=== PATIENT | male | born 1950 | race Caucasian/White ===

== ENCOUNTER 2020-03-04 06:30 | Day surgery (SDC) | payer OTHER ==
[2020-03-01 14:45] LABS: BASOPHILS % (AUTO) 0.6 % (0.0-5.0); EOSINOPHILS % (AUTO) 2.4 % (0.0-8.0); HEMATOCRIT 42.3 % (42-54); LYMPHOCYTES % (AUTO) 42.2 % (21.0-51.0); MEAN CORPUSCULAR HEMOGLOBIN 29.4 pg (27.0-33.0); MEAN CORPUSCULAR HGB CONC 32.9 g/dL (32.0-36.0); MEAN CORPUSCULAR VOLUME 89.4 fL (79-99); MONOCYTES % (AUTO) 6.8 % (3.0-13.0); NEUTROPHILS % (AUTO) 47.6 % (40.0-77.0); PLATELET COUNT (AUTO) 150 K/uL (130-400); RED BLOOD CELL COUNT(AUTO) 4.73 MIL/uL (4.50-6.20); RED CELL DISTRIBUTION WIDTH 13.4 % (11.0-15.5); WHITE BLOOD COUNT (AUTO) 5.5 K/uL (4.8-10.8)
[2020-03-01 15:05] LABS: CREATININE 0.9 mg/dL (0.5-1.5)
[2020-03-03 11:15] VITALS: BP 105/75
--- NOTE | 2020-03-03 14:29 | NUR ---
ABNORMAL EKG NOTIFIED OF ABNORMAL EKG. OK TO PROCEED WITH SURGERY. TELEPHONE ORDERS RECEIVED TO NOTIFY PCP OF ABNORMAL EKG. CALLED OFFICE OF DR. ROBERT PAREDES AND SPOKE WITH POOL. EKG FAXED TO OFFICE OF DR. PAREDES AT . DR. NARAYANAN NOTIFIED THAT PCP HAS BEEN NOTIFIED OF EKG.
[~2020-03-04] VITALS: Ht 190.5 cm; Wt 89.3 kg
[2020-03-04] VITALS (17 sets, daily range): BP systolic 106–126; BP diastolic 60–78
[~2020-03-04 06:30] MED LIST: AEC81 PO; CEFTRIAXONE SODIUM 1 GM IVP SCH; TAMS-1 PO
[2020-03-04] MEDS ORDERED: SODIUM CHLORIDE 0.9% 1000ML 0 ML IV ONE (06:35)
--- NOTE | 2020-03-04 06:40 | NUR ---
preop pt arrived via w/c in no distress. pt oriented to room and call light. will continue to monitor pt
[2020-03-04] MEDS ORDERED: LACTATED RINGERS 1000ML 1,000 ML IV ONE (07:06)
[2020-03-04] MEDS ORDERED: LIDOCAINE PF 2% 5ML ABBOJECT ONE ×2 (08:20→08:21)
[2020-03-04] MEDS ORDERED: SUCCINYLCHOLINE 200MG/10ML SYR ONE ×2 (08:20→08:23)
[2020-03-04] MEDS ORDERED: DEXAMETHASONE SOD PHOSPHATE 10MG/ML 1ML VIAL ONE (08:20)
[2020-03-04] MEDS ORDERED: GLYCOPYRROLATE 1 MG/5 ML SYRINGE ONE (08:21)
[2020-03-04] MEDS ORDERED: FENTANYL CITRATE PF 50 MCG/1 ML 2ML VIAL ONE (08:21)
[2020-03-04] MEDS ORDERED: NEOSTIGMINE 5MG/5ML SYR IV ONE (08:21)
[2020-03-04] MEDS ORDERED: ONDANSETRON HCL 4 MG/2 ML VIAL ONE (08:21)
[2020-03-04] MEDS ORDERED: PROPOFOL 10 MG/ML 20ML VIAL IV ONE (08:21)
[2020-03-04] MEDS ORDERED: MIDAZOLAM HCL 1 MG/ML 2ML VIAL ONE (08:21)
[2020-03-04] MEDS ORDERED: ROCURONIUM 10MG/1ML SYR 10 MG/ML ML ONE ×2 (08:21→09:19)
[2020-03-04] MEDS ORDERED: ATROPINE SULFATE 0.1 MG/ML 10 ML SYG IVP ONE (08:55)
[2020-03-04] MEDS ORDERED: OPIUM/BELLADONNA ALKALOIDS 1 EACH SUPP.RECT RC ONE (09:36)
[2020-03-04] MEDS ORDERED: MEPERIDINE-PF 25 MG/ML SYG ONE (09:38)
--- NOTE | 2020-03-04 10:50 | NUR ---
PATIENT BROUGHT TO DAY PATIENT VIA STRETCHER BY BAR GRULLON. PATIENT AAOX3, VITAL SIGNS STABLE. DENIES ANY PAIN AT THIS TIME. SERRANO CATHETER IN PLACE DRAINING LIGHT PINK TINGED URINE. SERRANO BAG CHANGED/SWITCHED OUT TO A LEG BAG. PATIENT TOLERATED WELL. PATIENT PROVIDED WITH EXTRA SERRANO BAG TO TAKE HOME. SERRANO CARE INSTRUCTIONS PROVIDED TO PATIENT AND CAREGIVER.
[2020-03-04] MEDS ORDERED: PHENAZOPYRIDINE HCL 200 MG TABLET ONE (11:11)
--- NOTE | 2020-03-04 11:35 | NUR ---
PATIENT DISCHARGED FROM FACILITY VIA WHEELCHAIR BY NURSE. PATIENT ASSISTED INTO PRIVATE VEHICLE DRIVEN BY FAMILY.
== END 2020-03-04 11:35 | disposition home or self-care (01) ==
LOC: DAH 06:30
PROVIDERS: ATTEND Urology
DX: N40.1 Benign prostatic hyperplasia with lower urinary tract symptoms (principal); Z20.828 Contact with and (suspected) exposure to other viral communicable diseases; R35.1 Nocturia; R39.14 Feeling of incomplete bladder emptying; R33.8 Other retention of urine; R39.12 Poor urinary stream; Z98.890 Other specified postprocedural states; Z79.899 Other long term (current) drug therapy
CPT/HCPCS: 36415; 52648; 80048; 85025; 93005; A4215; A4216; A4221; A4222; A4223 ×3; A4354; A4358 ×2; A4510; A4600; A4606; A4663; A5113; A6260; C9803; J0330 ×2; J0461; J0696; J1100; J2001 ×2; J2175; J2250; J2405; J2704; J2710; J3010; J3490; J7120 ×2; U0003; J7030

== ENCOUNTER → 2020-12-25 | Outpatient (CLI) | payer OTHER ==
[~2020-12-25] MED LIST changes: -AEC81 PO; -CEFTRIAXONE SODIUM 1 GM IVP SCH
== END | disposition home or self-care (01) ==
LOC: SLP 20:30
PROVIDERS: ATTEND Internal Medicine Critical Care Medicine
DX: G47.33 Obstructive sleep apnea (adult) (pediatric) (principal); G47.10 Hypersomnia, unspecified
CPT/HCPCS: 95810

== ENCOUNTER → 2023-05-14 | Outpatient (CLI) | payer OTHER | END | disposition home or self-care (01) | LOC: SHCH 12:26 | PROVIDERS: ATTEND Internal Medicine | DX: I51.7 Cardiomegaly (principal); R00.1 Bradycardia, unspecified; I10 Essential (primary) hypertension | CPT/HCPCS: 93306 ==